=== PATIENT | female | born 1980 | race Caucasian/White ===

== ENCOUNTER 2017-10-10 05:13 | Emergency (ER) | payer BC ==
[~2017-10-10] VITALS: Ht 160 cm; Wt 79.4 kg
[~2017-10-10 05:13] MED LIST: NORCO 5-325 TA1 EACH PO
[2017-10-10 06:03] LABS: ABSOLUTE NEUTROPHILS 5.1 thou/uL (1.4-8.2); BASOPHILS 0.7 % (0.0-2.0); EOSINOPHILS 1.2 % (0.0-3.0); HEMOGLOBIN 14.8 gm/dL (12.0-15.0); LYMPHOCYTES 45.4 % (24.0-44.0); MCH 32.2 pg (26.0-34.0); MCHC 34.3 g/dL (28.0-37.0); MCV 93.7 fL (80.0-100.0); MONOCYTES 5.6 % (1.0-8.0); PLATELET COUNT 237 thou/uL (150-400); POLYS 47.1 % (36.0-66.0); RBC 4.59 mil/uL (4.20-5.00); RDW 12.6 % (10.5-14.5); WBC 10.9 thou/uL (4.0-11.0)
[2017-10-10 06:11] LABS: CALCIUM 9.3 mg/dL (8.5-10.1); POTASSIUM 3.6 mmol/L (3.5-5.1)
[2017-10-10] MEDS ORDERED: NORCO 5-325 TA1 EACH PO (06:49)
[2017-10-10 06:59] VITALS: BP 140/83
== END 2017-10-10 06:59 | disposition home or self-care (01) ==
LOC: ER
PROVIDERS: Emergency Medicine
DX: M94.0 Chondrocostal junction syndrome [Tietze] (principal); G43.909 Migraine, unspecified, not intractable, without status migrainosus; Z90.710 Acquired absence of both cervix and uterus